=== PATIENT | male | born 1995 | race Caucasian/White ===

== ENCOUNTER 2022-01-24 12:18 | Emergency (ER) | payer SELFPAY ==
[~2022-01-24] VITALS: Ht 175.2 cm; Wt 81.6 kg
[2022-01-24] MEDS ORDERED: ACYCLOVIR400 MG PO (15:02)
== END 2022-01-24 15:27 | disposition home or self-care (01) ==
LOC: ED 12:18
DX: A60.00 Herpesviral infection of urogenital system, unspecified (principal)

== ENCOUNTER 2022-01-27 12:47 | Emergency (ER) | payer SELFPAY ==
[~2022-01-27] VITALS: Ht 175.2 cm; Wt 81.6 kg
[~2022-01-27 12:47] MED LIST: ACYCLOVIR400 MG PO
== END 2022-01-27 13:14 | disposition home or self-care (01) ==
LOC: ED 12:47
DX: A56.19 Other chlamydial genitourinary infection (principal); A60.01 Herpesviral infection of penis; Z79.899 Other long term (current) drug therapy

== ENCOUNTER 2022-05-19 18:55 | Emergency (ER) | payer SELFPAY ==
[~2022-05-19] VITALS: Ht 175.2 cm; Wt 81.6 kg
== END 2022-05-19 20:00 | disposition home or self-care (01) ==
LOC: ED 18:55
DX: J02.9 Acute pharyngitis, unspecified (principal); Z20.822 Contact with and (suspected) exposure to COVID-19; R51.9 Headache, unspecified; R09.89 Other specified symptoms and signs involving the circulatory and respiratory systems; F17.200 Nicotine dependence, unspecified, uncomplicated; Z79.899 Other long term (current) drug therapy